=== PATIENT | male | born 1945 | race Caucasian/White ===

== ENCOUNTER → 2021-01-09 | Outpatient (CLI) | payer MEDICARE, OTHER ==
[~2021-01-09] MED LIST: ASP81TEC PO; ATEN25TA PO; ATOR40TA PO; EZET10TA5 PO; HYDR-91 PO; MULT1CAP27 PO; NITR100C3 PO; OMEG-12 PO
--- NOTE | 2021-01-09 09:29 | Diagnostic Imaging Report ---
PROCEDURE: CT chest without contrast. TECHNIQUE: Multiple contiguous axial images were obtained through the chest without the use of intravenous contrast. Auto Exposure Controls were utilized during the CT exam to meet ALARA standards for radiation dose reduction. INDICATION: Lung mass. I have no relevant comparison. FINDINGS: No suspicious lung mass or pulmonary nodules are found. The lungs are free of acute infiltrate, although there is some air trapping and features of likely underlying COPD. No blebs, bullous disease or bronchiectasis. No findings of pneumonia or edema. No pleural or pericardial effusion. The thoracic aorta is calcified but nonaneurysmal. There is no evidence for hilar or mediastinal lymphadenopathy. No acute soft tissue or osseous chest wall pathology. The visualized upper abdomen shows a previous cholecystectomy and likely cyst formation and cortical calcifications in the partially visualized upper pole left kidney. IMPRESSION: No lung mass or acute pathology. Likely air trapping and COPD suggested nonaneurysmal atherosclerosis, renal cortical focal thinning, parenchymal calcifications and cyst formation in the left upper pole noted. Dictated by: Dictated on workstation # [id number]
== END ==
LOC: RAD 08:13
PROVIDERS: ATTEND Nurse Practitioner
DX: Z01.89 Encounter for other specified special examinations (principal); R91.8 Other nonspecific abnormal finding of lung field
CPT/HCPCS: 71250

== ENCOUNTER → 2022-09-10 | Outpatient (CLI) | payer OTHER ==
--- NOTE | 2022-09-10 16:06 | Diagnostic Imaging Report ---
EXAMINATION: CT chest without contrast. TECHNIQUE: Multiple contiguous axial images were obtained through the chest without the use of intravenous contrast. All CT scans use one or more of the following dose optimizing techniques: automated exposure control, MA and/or KvP adjustment based on patient size and exam type or iterative reconstruction. HISTORY: Abnormal chest radiograph. COMPARISON: 01/09/2021. FINDINGS: There is no edema or pneumonia. No pleural effusion. No pneumothorax. No suspicious nodules. There is no axillary or supraclavicular lymphadenopathy. There is no mediastinal lymphadenopathy. Pacemaker is present. Heart size is normal. There are severe coronary artery calcifications. No pericardial effusion. Aorta is normal in caliber. Limited views of the upper abdomen show changes of cholecystectomy. There is a cyst with calcifications in the upper pole left kidney, unchanged. There are no suspicious osseus lesions. IMPRESSION: Clear lungs. Dictated by: Dictated on workstation # [id number]
== END ==
LOC: RAD 11:04
PROVIDERS: ATTEND Nurse Practitioner
DX: R91.8 Other nonspecific abnormal finding of lung field (principal)
CPT/HCPCS: 71250

== ENCOUNTER 2022-10-06 10:53 | Day surgery (SDC) | payer OTHER ==
[2022-10-06] VITALS (8 sets, daily range): BP systolic 140–176; BP diastolic 87–98
[~2022-10-06] VITALS: Ht 176.5 cm; Wt 82.3 kg
[2022-10-06] MEDS ORDERED: NS IV 1000 ML 1,000 ML IV ONE (11:15)
[2022-10-06] MEDS ORDERED: HEParin (CATH LAB) 1,000 ML IV ONE (11:20)
[2022-10-06] MEDS ORDERED: NS IV 1000 ML 2,000 ML ONE (11:20)
[2022-10-06] MEDS ORDERED: LIDOCAINE 1% INJ 30 ML (XYLOCAINE) VIAL ONE ×2 (11:20→14:00)
[2022-10-06] MEDS ORDERED: CARV12.53 PO (11:48)
[2022-10-06] MEDS ORDERED: ROSU40TA23 PO (11:48)
[2022-10-06] MEDS ORDERED: LISI40TA9 PO (11:48)
[2022-10-06] MEDS ORDERED: ASPI-808 PO (11:48)
[2022-10-06] MEDS ORDERED: ceFAZolin INJECTION 1,000 MG ONE (12:01)
[2022-10-06 12:03] LABS: HEMATOCRIT 45 % (40-54); HEMOGLOBIN 15.3 g/dL (13.3-17.7); MEAN CORPUSCULAR HEMOGLOBIN 29 pg (25-34); MEAN CORPUSCULAR HGB CONC 34 g/dL (32-36); MEAN CORPUSCULAR VOLUME 85 fL (80-99); MEAN PLATELET VOLUME 9.8 fL (9.0-12.2); PLATELET COUNT 186 10^3/uL (130-400); WHITE BLOOD COUNT 8.2 10^3/uL (4.3-11.0)
[2022-10-06 12:06] LABS: BILIRUBIN,URINE NEGATIVE (NEGATIVE); CLARITY,URINE CLEAR; COLOR,URINE YELLOW; GLUCOSE, URINE (UA) NEGATIVE (NEGATIVE); KETONES,URINE NEGATIVE (NEGATIVE); LEUKOCYTE ESTERASE ,URINE NEGATIVE (NEGATIVE); NITRITE,URINE NEGATIVE (NEGATIVE); PH,URINE 5.5 (5-9); PROTEIN,URINE NEGATIVE (NEGATIVE)
[2022-10-06 12:14] LABS: BACTERIA,URINE NEGATIVE /HPF
[2022-10-06 12:26] LABS: ALBUMIN 3.9 GM/DL (3.2-4.5); BILIRUBIN,TOTAL 0.9 MG/DL (0.1-1.0); CALCIUM 9.3 MG/DL (8.5-10.1); CREATININE SERUM 0.87 MG/DL (0.60-1.30); POTASSIUM 4.3 MMOL/L (3.6-5.0); TOTAL PROTEIN 6.8 GM/DL (6.4-8.2)
--- NOTE | 2022-10-06 12:26 | Diagnostic Imaging Report ---
Indication: Coronary artery disease Frontal chest obtained at 1141 a.m. Heart is borderline in size. Pacemaker is unchanged. There is no pneumothorax or pleural fluid. IMPRESSION: No acute process in the chest. Dictated by: Dictated on workstation # [id number]
--- NOTE | 2022-10-06 13:06 | Cardiac Procedure Note-CS/ASA ---
Pre-Procedure Note Pre-Op Procedure Note Date of Available H&P: Sep 27, 2022 Date H&P Reviewed: Oct 06, 2022 Time H&P Reviewed: 13:06 History & Physical: H&P Reviewed, Patient Examed, No changes noted Pre-Operative Diagnosis: SSS Conscious Sedation Pre-Proced Time 13:06 ASA Score 3 For ASA 3 and 4: Consider anesthesia and medical clearance. Also, for patients with a history of failed moderate sedation consider anesthesia. Airway Lungs Heart ASA score ASA 1: a normal healthy patient ASA 2: a patient with a mild systemic disease (mid diabetes, controlled hypertension, obesity ASA 3: a patient with a severe systemic disease that limits activity (angina, COPD, prior Myocardial infarction) ASA 4: a patient with an incapacitating disease that is a constant threat to life (CHF, renal failure) ASA 5: a moribund patient not expected to survive 24 hrs. (ruptured aneurysm) ASA 6: a declared brain- patient whose organs are being harvested. For emergent operations, add the letter E after the classification Mallampati Classification Grade 3 Sedation Plan Analgesia, Amnesia, Plan communicated to team members, Discussed options with patient/fam, Discussed risks with patient/fam The patient is an appropriate candidate to undergo the planned procedure, sedation, and anesthesia. The patient immediately re-assessed prior to indication. COLLETTE OROZCO MD Oct 06, 2022 13:06
[2022-10-06] MEDS ORDERED: fentaNYL INJ 100 MCG/2 ML AMP ONE (13:10)
[2022-10-06] MEDS ORDERED: MIDAZOLAM 5 MG/5 ML (VERSED) VIAL ONE (13:10)
--- NOTE | 2022-10-06 14:24 | Permanent Pacemaker Implant ---
Dual Chamber Pacemaker Implant PROCEDURE PHYSICIAN: Christopher Cash DUAL CHAMBER PACEMAKER IMPLANTATION: DATE OF PROCEDURE: 10/06/22 INDICATION: Sinus node dysfunction, pacemaker reaching HODAN PREOPERATIVE DIAGNOSIS: Sinus node dysfunction POSTOPERATIVE DIAGNOSIS: Sinus node dysfunction HISTORY: 77-year-old gentleman with history of sinus node dysfunction, had permanent pacemaker, reached HODAN. PROCEDURE PERFORMED: 1. Dual-chamber permanent pacemaker generator replacement ANESTHESIA: Local anesthesia, conscious sedation. COMPLICATIONS: None. ESTIMATED BLOOD LOSS:20 mL. SPECIMENS: None. ORAL ANTICOAGULATION: None. FLUOROSCOPY TIME: FLUOROSCOPY DOSE: CONTRAST DOSE: PROCEDURE DETAILS: The patient is a 77 male with dual-chamber pacemaker, reached HODAN. Scheduled for generator replacement. After explaining the procedure to the patient, all pros and cons were explained, patient was placed on the EP table. Conscious sedation achieved, local anesthesia applied, skin incision was made then the device was removed out of the pocket. It were released from the leads and a new device was implanted and attached to the lead. It was placed in the direct patch then inserted back in the pocket. The wound was then closed using 2 layers. The first layer was interrupted 2-0 absorbable Vicryl suture. The last layer was a single subcuticular layer with 4- 0 Vicryl suture. Half inch Steri-Strips and a small dressing were then applied to the wound. The patient tolerated the procedure well and was returned to the recovery room in stable condition with stable vital signs. DEVICE INFORMATION: WILLIAM XT DR AARON Serial [id number] RA LEAD: [employer] [id number] RV LEAD: [employer] [id number] PER-OPERATIVE DEVICE INTERROGATION: Device was at HODAN IMMEDIATE POSTOPERATIVE DEVICE INTERROGATION: P wave 3 mV, pacing impedance 399, pacing threshold 1 V at 0.4 ms. R wave 13.6 mV, pacing impedance 532, pacing threshold 1.25 V at 0.4 ms. PLAN: Patient will be monitored in recovery then he will be discharged home. CONCLUSION: 1. Successful dual-chamber pacemaker generator replacement with no complication FINAL DIAGNOSIS: Sinus node dysfunction Cardiac pacemaker Hypertension Hyperlipidemia CHRISTOPHER CASH MD Oct 06, 2022 14:24
--- NOTE | 2022-10-06 14:26 | Discharge Inst-Post CATH ---
Discharge Inst-CATH/EP Problems Reviewed?: Yes Post Cardiac Cath/EP D/C Inst Follow Up/Plan Appointment with Dr. Cash's office next week for wound check <b>CARDIAC CATH/EP PROCEDURE DISCHARGE INSTRUCTIONS</b> ACTIVITY * Go Home directly and rest. * Limit activity of the leg (or wrist if it was used) for 7 days including aerobics, swimming, jogging, bicycling, etc. * Restrict stair-climbing for 7 days if possible, if not, climb up with your non-cath leg, then bring together on the same step. * Avoid lifting, pushing, pulling or excessive movement of the affected extremity for 7 days. * Customary sexual activity may be resumed after 2 days-use caution not to use a position that strains or causes pain to the affected extremity. * No driving for 24 hours. * NO SMOKING. * Avoid straining for bowel movements for 7 days. * Gentle walking on level ground is allowed. * Returning to work will depend on the type of procedure and the results. Your doctor will discuss this with you. CALL YOUR DOCTOR FOR ANY OF THE FOLLOWING: *If bleeding from the puncture site occurs- Apply gentle pressure to site with clean cloth and call your doctor or EMS. * If a knot or lump forms under the skin, increases in size, or causes pain. * If bruising appears to be worsening or moving further down your leg instead of disappearing. * Temperature above 101 F. CARE OF YOUR GROIN INCISION; * Bruising or purple discoloration of the skin near the puncture site is common. * You may shower only, no bathtub bathing for 5 days. Be careful to avoid slipping as your leg may feel stiff. * If a closure device was used on your femoral artery, please see the attached guide regarding care of the device and your leg. * Leave dressing on FOR 24 hours. CARE OF YOUR WRIST INCISION; * Bruising or purple discoloration of the skin near the puncture site is common. * You may shower. * DO NOT submerge wrist. * Leave dressing on FOR 24 hours. COLLETTE CASH MD Oct 06, 2022 14:25
[2022-10-06] MEDS ORDERED: NS IV 1000 ML 1,000 ML IV SCH (14:30)
[2022-10-06] MEDS ORDERED: PATIENT MAY USE OWN MEDS, ALL PO SCH (14:30)
== END 2022-10-06 17:10 | disposition home or self-care (01) ==
LOC: CATH 10:53
PROVIDERS: ATTEND Internal Medicine Cardiovascular Disease
DX: Z45.010 Encounter for checking and testing of cardiac pacemaker pulse generator [battery] (principal); I49.5 Sick sinus syndrome; I10 Essential (primary) hypertension; E78.5 Hyperlipidemia, unspecified
CPT/HCPCS: 33228; 36415; 71045; 80053; 80061; 81000; 85027; 85610; 85730; 87081; 93005

== ENCOUNTER → 2022-10-20 | Outpatient (CLI) | payer OTHER ==
[~2022-10-20] MED LIST changes: +ASPI-808 PO; +CARV12.53 PO; +LISI40TA9 PO; +ROSU40TA23 PO
== END ==
LOC: CARD 13:30
PROVIDERS: ATTEND Internal Medicine Cardiovascular Disease
DX: I10 Essential (primary) hypertension (principal); I25.10 Atherosclerotic heart disease of native coronary artery without angina pectoris
CPT/HCPCS: 93306

== ENCOUNTER → 2022-10-27 | Outpatient (CLI) | payer OTHER ==
[~2022-10-27] MED LIST changes: +CATHETER FLUSH 10 ML SYR IVP PRN; +REGADENOSON 0.4 MG/5 ML SYR (LEXISCAN) IV ONE
[2022-10-27 13:29] VITALS: BP 180/89
--- NOTE | 2022-10-27 14:46 | Cardiology Stress Test Report ---
Stress Test Report Date of Procedure/Referring: Date of Procedure: Oct 27, 2022 PCP No,Local Physician Admitting Physician Admitting Physician: Attending Physician: Collette Cash MD Baseline Heart Rate: 70 Baseline Blood Pressure: Blood Pressure Systolic: 180 Blood Pressure Diastolic: 89 Baseline Vitals Vital Signs Date Time Temp Pulse Resp B/P (MAP) Pulse Ox O2 Delivery O2 Flow Rate FiO2 10/27/22 13:29 70 180/89 (119) 98 Baseline EKG: Baseline EKG: NSR, alternating with paced rhythm Summary After explaining the procedure to the patient, he signed a consent and then brought to the stress nuclear laboratory. Patient received 0.4 mg Lexiscan for stress test, ECG, heart rate and blood pressure were monitored continuously. Resting and stress dose of radio tracer were injected, imaging was acquired and reviewed in short axis, horizontal long axis and vertical long axis views. SSS: 4 SDS: 1 EF: 59 1. Patient tolerated Lexiscan well 2. Baseline sinus rhythm normal QRS and alternating paced rhythm 3. Diaphragmatic attenuation with mild decrease uptake at the inferoapical segment with no significant reversibility, no significant ischemia or infarction on SPECT images 4. Normal left ventricular size, ejection fraction 59% COLLETTE CASH MD Oct 27, 2022 14:46
== END ==
LOC: CARD 11:56
PROVIDERS: ATTEND Internal Medicine Cardiovascular Disease
DX: I10 Essential (primary) hypertension (principal); I25.10 Atherosclerotic heart disease of native coronary artery without angina pectoris
CPT/HCPCS: 78452; 93017

== ENCOUNTER → 2023-04-06 | Outpatient (RCR) | payer MEDICARE, OTHER ==
[~2023-04-06] MED LIST changes: -CATHETER FLUSH 10 ML SYR IVP PRN; -REGADENOSON 0.4 MG/5 ML SYR (LEXISCAN) IV ONE
== END | disposition home or self-care (01) ==
LOC: ONC 10:15
PROVIDERS: ATTEND Internal Medicine Hematology & Oncology
DX: Z53.9 Procedure and treatment not carried out, unspecified reason (principal)